=== PATIENT | male | born 1975 ===

== ENCOUNTER 2017-11-07 09:17 | Outpatient (CLI) | payer OTHER ==
[~2017-11-07] VITALS: Ht 167.6 cm; Wt 142.9 kg
== END 2017-11-07 09:35 | disposition home or self-care (01) ==
LOC: OFIC 805 09:17
DX: J32.8 Other chronic sinusitis (principal); R42 Dizziness and giddiness

== ENCOUNTER 2017-12-08 09:19 | Emergency (ER) | payer OTHER ==
[~2017-12-08] VITALS: Ht 167.6 cm; Wt 139.7 kg
== END 2017-12-08 10:46 | disposition home or self-care (01) ==
LOC: ER 09:19
DX: R53.1 Weakness (principal); F06.4 Anxiety disorder due to known physiological condition

== ENCOUNTER 2018-01-09 18:48 | Emergency (ER) | payer OTHER ==
[~2018-01-09] VITALS: Ht 167.6 cm; Wt 138.3 kg
== END 2018-01-09 21:45 | disposition home or self-care (01) ==
LOC: ER 18:48
DX: R07.89 Other chest pain (principal); F06.4 Anxiety disorder due to known physiological condition